=== PATIENT | female | born 1990 | race Caucasian/White ===

== ENCOUNTER 2019-02-02 15:59 | Emergency (ER) | payer MEDICAID, SELFPAY ==
[2019-02-02 16:01] VITALS: BP 127/84; PULSE 104; RESP 17; TEMP 36.8; O2SAT 99; BMI 33.3
--- NOTE | 2019-02-02 16:58 | ED.VISSUMM ---
- ER Visit Summary Date of Service: 02/02/19 Chief Complaint: Left leg pain from DVT History of Present Illness: The patient is a 28 F who is 34 weeks who presents for severe uncontrolled leg pain from unknown DVT. Patient states she began having left leg pain 2 weeks ago and was diagnosed with DVT in the left lower extremity up to the groin. She was started on Lovenox subcu 100 mg twice daily. Patient continued to have significant pain worsened. She was seen at [facility] emergency department and given morphine for pain. She was discharged on Percocet every 4 hours, which made the pain more tolerable. She took her last dose during the night. Patient is having so much pain that she is unable to ambulate without a cane. She is also urinating in a bucket next to her bed because she is unable to ambulate any distance. She denies any shortness of breath, chest pain, fever, dizziness, lightheadedness or any other complaints other than the severe worsening left leg pain. Patient has appointment with Dr. Mendenhall on Tuesday. Patient denies any other medical history. Physical Examination: Vital signs: afebrile, hemodynamically stable, no hypoxia on room air General: well nourished, well developed, in bed crying Skin: warm, dry, no rash, no pallor HEENT: normocephalic and atraumatic; PERRL, EOMI, moist mucous membranes Cardiovascular: Mildly tachycardic rate crying and regular rhythm without murmurs,2+ pulses all distal extremities, left lower extremity is edematous up to the knee, tender to light palpation in the entire foot, lower leg, and medial thigh. No palpable cords. Legs are symmetric in temperature. No tenderness, swelling or palpable cords to the right lower extremity. Respiratory: No increased work of breathing, lungs are clear to auscultation bilaterally, no rales, rhonchi or wheezing, no tachypnea Abdominal: Abdomen is gravid, nontender with normoactive bowel sounds, no guarding or rebound, no masses MSK: Moves all extremities, no deformities, normal strength Neuro: Awake and alert, oriented ?4. No facial droop, sensation and motor function intact and symmetric Test Results: Abnormal Lab Results 02/02/19 02/02/19 02/02/19 17:20 17:20 17:20 WBC 11.8 H RBC 3.94 L Hgb 11.2 L Hct 32.6 L MCV 82.7 MCH 28.4 MCHC 34.4 RDW 12.5 RDW Differential 37.2 Plt Count 453 H MPV 9.1 PT 13.4 INR 1.0 APTT 36.5 H Sodium 136 Potassium 3.6 Chloride 106 Carbon Dioxide 23.0 Anion Gap 7 BUN 9 Creatinine 0.37 L Estim Creat Clear Calc 191.98 Est GFR (MDRD) Af Amer 266 Est GFR (MDRD) Non-Af 220 BUN/Creatinine Ratio 24.5 H Glucose 75 Calcium 8.7 Clinical Impression(s) from Imaging Studies Venous Duplex 02/02/19 17:09 IMPRESSION: Right lower extremity venous Doppler exam negative for DVT. Left lower extremity venous Doppler exam negative for acute occlusive thrombus of the common femoral and femoral vein. Electronically Signed: Mita Abdul MD at 20:53 EDT , Service support , Emergency Department Course and Treatment: Patient has no complaints that would be concerning for a pulmonary embolism. Patient was given IV fluids, morphine and Phenergan for symptomatic control. Patient had some improvement in her pain with this treatment. Ultrasound was repeated since we do not have access to patient's prior ultrasounds, and it showed extensive left lower extremity complete occlusive thrombus from the common femoral down to the knee. Patient was given additional pain medication as needed. Patient was discussed with Dr. Mendenhall, with whom she has an outpatient appointment coming up in a few days for this complaint, and he recommended that because patient is on the appropriate therapy already but is having such severe pain, she would benefit from a vascular surgeon consult and also from high risk maternal management. This is not available at [facility]. Patient requested [facility], and was accepted at [facility] by Dr. Zayas. Treatment Plan: [] Disposition: Transfer to [facility], OB, Dr. Zayas Impression: Extensive left lower extremity DVT, intractable pain, 34 weeks This note was generated with PlayCanvasation software. It may contain incorrect words, spelling, and punctuation that were not noted in review of the chart prior to signing ED Disposition - Plan for ED Patient: Referrals: Care Physician,No Primary [Primary Care Provider] -
--- NOTE | 2019-02-02 17:01 | ED.DCSUM_ITS ---
- ER Visit Summary Date of Service: 02/02/19 Chief Complaint: Left leg pain from DVT History of Present Illness: The patient is a 28 F who is 34 weeks who presents for severe uncontrolled leg pain from unknown DVT. Patient states she began having left leg pain 2 weeks ago and was diagnosed with DVT in the left lower extremity up to the groin. She was started on Lovenox subcu 100 mg twice daily. Patient continued to have significant pain worsened. She was seen at [facility] emergency department and given morphine for pain. She was discharged on Percocet every 4 hours, which made the pain more tolerable. She took her last dose during the night. Patient is having so much pain that she is unable to ambulate without a cane. She is also urinating in a bucket next to her bed because she is unable to ambulate any distance. She denies any shortness of breath, chest pain, fever, dizziness, lightheadedness or any other complaints other than the severe worsening left leg pain. Patient has appointment with Dr. Mendenhall on Tuesday. Patient denies any other medical history. Physical Examination: Vital signs: afebrile, hemodynamically stable, no hypoxia on room air General: well nourished, well developed, in bed crying Skin: warm, dry, no rash, no pallor HEENT: normocephalic and atraumatic; PERRL, EOMI, moist mucous membranes Cardiovascular: Mildly tachycardic rate crying and regular rhythm without murmurs,2+ pulses all distal extremities, left lower extremity is edematous up to the knee, tender to light palpation in the entire foot, lower leg, and medial thigh. No palpable cords. Legs are symmetric in temperature. No tenderness, swelling or palpable cords to the right lower extremity. Respiratory: No increased work of breathing, lungs are clear to auscultation bilaterally, no rales, rhonchi or wheezing, no tachypnea Abdominal: Abdomen is gravid, nontender with normoactive bowel sounds, no guarding or rebound, no masses MSK: Moves all extremities, no deformities, normal strength Neuro: Awake and alert, oriented ?4. No facial droop, sensation and motor function intact and symmetric Test Results: Abnormal Lab Results 02/02/19 02/02/19 02/02/19 17:20 17:20 17:20 WBC 11.8 H RBC 3.94 L Hgb 11.2 L Hct 32.6 L MCV 82.7 MCH 28.4 MCHC 34.4 RDW 12.5 RDW Differential 37.2 Plt Count 453 H MPV 9.1 PT 13.4 INR 1.0 APTT 36.5 H Sodium 136 Potassium 3.6 Chloride 106 Carbon Dioxide 23.0 Anion Gap 7 BUN 9 Creatinine 0.37 L Estim Creat Clear Calc 191.98 Est GFR (MDRD) Af Amer 266 Est GFR (MDRD) Non-Af 220 BUN/Creatinine Ratio 24.5 H Glucose 75 Calcium 8.7 Clinical Impression(s) from Imaging Studies Venous Duplex 02/02/19 17:09 IMPRESSION: Right lower extremity venous Doppler exam negative for DVT. Left lower extremity venous Doppler exam negative for acute occlusive thrombus of the common femoral and femoral vein. Electronically Signed: Mita Abdul MD at 20:53 EDT , Service support , Emergency Department Course and Treatment: Patient has no complaints that would be concerning for a pulmonary embolism. Patient was given IV fluids, morphine and Phenergan for symptomatic control. Patient had some improvement in her pain with this treatment. Ultrasound was repeated since we do not have access to patient's prior ultrasounds, and it showed extensive left lower extremity complete occlusive thrombus from the common femoral down to the knee. Patient was given additional pain medication as needed. Patient was discussed with Dr. Mendenhall, with whom she has an outpatient appointment coming up in a few days for this complaint, and he recommended that because patient is on the appropriate therapy already but is having such severe pain, she would benefit from a vascular surgeon consult and also from high risk maternal management. This is not available at [facility]. Patient requested [facility], and was accepted at [facility] by Dr. Zayas. Treatment Plan: [] Disposition: Transfer to [facility], OB, Dr. Zayas Impression: Extensive left lower extremity DVT, intractable pain, 34 weeks This note was generated with CrossMedia dictation software. It may contain incorrect words, spelling, and punctuation that were not noted in review of the chart p rior to signing ED Disposition - Plan for ED Patient: Referrals: Care Physician,No Primary [Primary Care Provider] -
--- NOTE | 2019-02-02 17:09 | US_ITS ---
We are attempting to reach Renetta Mccormick to discuss findings. An addendum with communication details will be sent when the communication is complete. STUDY: VENOUS DOPPLER ULTRASOUND - BILATERAL LOWER EXTREMITIES REASON FOR EXAM: Female, 28 years old. Pain and swelling of the left leg. TECHNIQUE: Ultrasound evaluation of the deep vein system to include nelson-scale imaging and compression was performed. Nelson-scale imaging and Doppler sonographic evaluation, including duplex spectral analysis and qualitative color flow sonography, was performed. COMPARISON: None. FINDINGS: RIGHT LEG Common Femoral Vein: Normal compression, spontaneity and augmentation. Normal color Doppler. Common Femoral Vein/Greater Saphenous Junction: Normal compression. Femoral Proximal: Normal compression. Femoral Middle: Normal compression, spontaneity and augmentation. Normal color Doppler. Femoral Distal: Normal compression. Popliteal Vein: Normal compression, spontaneity and augmentation. Normal color Doppler. Posterior Tibial Vein: Normal compression. Peroneal Vein: Normal compression. LEFT LEG Common Femoral Vein: Noncompressible with no color flow. Common Femoral Vein/Greater Saphenous Junction: Noncompressible with no color flow. Femoral Proximal: Noncompressible with no color flow. Femoral Middle: Noncompressible with no color-flow. Femoral Distal: Noncompressible with no color flow. Popliteal Vein: Compressible with color flow. Posterior Tibial Vein: Normal compression. Peroneal Vein: Normal compression. US/Venous Duplex Imag/[place] Extrem IMPRESSION: Right lower extremity venous Doppler exam negative for DVT. Left lower extremity venous Doppler exam negative for acute occlusive thrombus of the common femoral and femoral vein. Electronically Signed: Mita Abdul MD at 20:53 EDT , Service support ,
[2019-02-02] MEDS: 0.9% Normal Saline 1,000 ML 999 ML IV (17:20)
[2019-02-02] MEDS: Morphine 4 MG/ML Syringe IV (17:20)
[2019-02-02] MEDS: proMETHazine 25 MG/ML Syringe 6.25 MG IV (17:21)
[2019-02-02] MEDS: Enoxaparin 100 MG/ML Syringe SC (17:21)
[2019-02-02 17:39] LABS: Hematocrit 32.6 % (37-47); Hemoglobin 11.2 g/dl (12.0-15.0); Mean Corp Hgb Conc 34.4 g/gl (32-36); Mean Corpuscular Hgb 28.4 pg (27.0-32.0); Mean Corpuscular Volume 82.7 fL (81-99); Mean Platelet Vol. 9.1 fl (6.2-12.0); Platelet Count 453 K/mm3 (150-450); RBC Distribution Width CV 12.5 % (11.6-14.6); RBC Distribution Width SD 37.2 fl (35.1-43.9); Red Blood Count 3.94 M/mm3 (4.2-5.4); White Blood Count 11.8 K/mm3 (4.4-11.0)
[2019-02-02 17:40] LABS: Scan Indicated on CBC? Y/N NO
[2019-02-02 17:47] LABS: Anion Gap 7 (5-15); BUN 9 mg/dL (7-18); BUN/Creat Ratio 24.5 RATIO (10-20); Calcium,Total 8.7 mg/dL (8.5-10.1); Chloride 106 mmol/L (98-107); Creatinine, Serum 0.37 mg/dL (0.55-1.02); EST Glomerular Filtration Rate 220 mL/min (>60); Est Glom Filt Rate - Afr Amer 266 mL/min (>60); Estimated Creatinine Clearance 191.98 ml/min; Glucose 75 mg/dL (74-106); Potassium 3.6 mmol/L (3.5-5.1); Sodium Level 136 mmol/L (136-145)
[2019-02-02 18:25] LABS: Prothrombin Time (Protime)PT. 13.4 SECONDS (11.7-14.9)
[2019-02-02 18:26] LABS: Partial Thromboplast Time 36.5 Seconds (24.1-36.2)
[2019-02-02 18:38] VITALS: BP 115/64; PULSE 66; RESP 15; O2SAT 99
[2019-02-02] MEDS: HYDROcodone Bitartrate/Apap 5/325 Tablet PO (21:13)
[2019-02-02 21:14] VITALS: BP 125/60; PULSE 73; PULSE 76; RESP 15; O2SAT 98
--- NOTE | 2019-02-02 21:42 | NURSING ---
ACCEPTED TO [place] [id number] REPORT
== END 2019-02-02 22:51 | disposition short-term general hospital (02) ==
LOC: ED 17:40
PROVIDERS: Emergency Provider Emergency Medicine
DX: O22.33 Deep phlebothrombosis in pregnancy, third trimester (principal); I82.412 Acute embolism and thrombosis of left femoral vein; Z79.01 Long term (current) use of anticoagulants; Z3A.34 34 weeks gestation of pregnancy
CPT/HCPCS: 80048; 85027; 85610; 85730; 93970; 96361; 96372; 96374; 96375; 99284; J7030

== ENCOUNTER 2019-02-18 23:15 | Outpatient (CLI) | payer MEDICAID, SELFPAY ==
[2019-02-18 23:28] VITALS: BMI 34.8
[2019-02-18] MEDS: Enoxaparin 100 MG/ML Syringe 90 MG SC (23:42)
--- NOTE | 2019-02-20 08:00 | OB.TRI.NOTE ---
History of Present Illness Date of Service: 02/18/19 Was patient seen by the physician?: No Reason For Visit: INJECTION LOvenox Date of Service: 02/18/19 Allergies No Known Allergies Allergy (Verified 02/18/19 23:29) Impression/Plan 28yo here for LOVENOX INJECTION - has DVT in - problem with insurance until tuesday morning 1) Lovenox 90mg SQ x 1 2) dc home
== END 2019-02-18 23:50 | disposition home or self-care (01) ==
LOC: WPOUT 23:20 → WP 23:22
PROVIDERS: Referring Provider Obstetrics & Gynecology; Visit Provider Obstetrics & Gynecology
DX: O22.30 Deep phlebothrombosis in pregnancy, unspecified trimester (principal); I82.409 Acute embolism and thrombosis of unspecified deep veins of unspecified lower extremity; Z3A.00 Weeks of gestation of pregnancy not specified
CPT/HCPCS: 96372; 99218; G0378

== ENCOUNTER 2019-03-04 19:15 | Inpatient (IN) | payer MEDICAID, SELFPAY ==
[2019-03-04 19:55] VITALS: BMI 34.0
[2019-03-04] MEDS: Lactated Ringers 1,000 ML 50 ML IV ×2 (19:59→23:55)
[2019-03-04 20:18] LABS: Absolute Lymphocyte Count 2.64 X10^3/ul (0.83-4.51); Absolute Neutrophil Count 7.2 X10^3/uL (2.0-7.7); Basophil# 0.01 X10^3/uL; Basophil% 0.1 % (0-1); Eosinophil# 0.07 X10^3/uL; Eosinophils% 0.7 % (0-5); Hematocrit 34.5 % (37-47); Hemoglobin 11.8 g/dl (12.0-15.0); Lymphocyte # 2.64 X10^3/ul (4.0); Lymphocyte % 25.2 % (19-41); Mean Corp Hgb Conc 34.2 g/gl (32-36); Mean Corpuscular Hgb 28.5 pg (27.0-32.0); Mean Corpuscular Volume 83.3 fL (81-99); Mean Platelet Vol. 10.1 fl (6.2-12.0); Monocyte# 0.54 X10^3/uL; Monocyte% 5.2 % (0-10); Neutrophil # 7.19 X10^3/uL (2.7-7.7); Neutrophil % 68.6 % (47-70); Platelet Count 302 K/mm3 (150-450); RBC Distribution Width CV 13.2 % (11.6-14.6); RBC Distribution Width SD 40.2 fl (35.1-43.9); Red Blood Count 4.14 M/mm3 (4.2-5.4); White Blood Count 10.5 K/mm3 (4.4-11.0)
[2019-03-04 20:23] LABS: POSITIVE COUNT NO; POSITIVE DIFFERENTIAL NO; POSITIVE MORPHOLOGY NO
[2019-03-04] MEDS: 0.9% Normal Saline 100 ML IV.SOLN. INTRA-UTER (20:30)
[2019-03-04] MEDS: Oxytocin 30 units/NS 500 ml 30 UNITS/500 ML IV.SOLN IV (20:36)
--- NOTE | 2019-03-04 20:42 | PCM.HP.OB ---
- Problem List (1) Opiate use Status: Acute (2) DVT complicating Status: Acute (3) Tobacco use Status: Acute (4) History of bipolar disorder Status: Acute (5) ADHD Status: Acute (6) Polyhydramnios affecting Status: Acute History Date of Admission: 03/04/19 Final SHA: 03/11/19 Final SHA Source: US <20 weeks Gestational age: 39 Weeks and 0 Days History of this : This is a 28 year-old, G [], P [], at 39 weeks gestational age. Allergies No Known Allergies Allergy (Verified 02/18/19 23:29) Home Medications: Home Medications Enoxaparin Sodium 100 mg SQ BID 02/02/19 Ondansetron [Ondansetron Odt] 4 mg PO Q8H PRN PRN 02/02/19 Pnv No.103/Folic/Om3s/Fish Oil [ Gummies] 2 each PO DAILY 02/02/19 Smoking Status: Current every day smoker Alcohol: None Substance Use Type: Heroin, Opiates Number of Fetus(es): 1 Heart Tracin, moderate variability, accels, no decels, Category 1 None History Past Pregnancies: Past Pregnancies Delivery Date Name GA/Weeks Outcome Route Weight Infant Gender Labor Length Anesthesia Delivery Location Provider FOB Labs: A positive Rubella Immune RPR negative HBsAG negative HIV negative Hep C negative GC/CT negative Expected Infant Delivery Method: Spontaneous Vaginal Review of Systems Constitutional: Reports: Anorexia HEENT: Denies: Head Aches, Sinus Congestion, Sinus Drainage Cardiovascular: Denies: Chest Pain, Palpitations Respiratory: Denies: Cough, Shortness of breath at rest, Sputum production Gastrointestinal: Denies: Abdominal Pain, Nausea, Vomiting Genitourinary: Denies: Dysuria Neurological: Denies: Numbness, Tingling, Focal weakness Psychiatric: Denies: Anxiety, Depression, Homicidal Ideations, Suicidal Ideations Physical Exam General: Alert, Oriented x3, No apparent distress HEENT: Atraumatic, Normocephalic Cardiovascular: Regular rate, Regular Rhythm, No murmurs Lungs: Clear to auscultation, Normal air movement, No wheeze Abdomen: Bowel Sounds Present, Gravid Extremities:: No edema Neurological: Deep Tendon Reflexes 2+/4 and Symmetrical Estimated gestational size: Appropriate for gestational size Presentation: Cephalic Cervix Dilation (cm): 2 - garg catheter inserted without difficulty Station: -1 Effacement (%): 80 Assessment/Plan All Active Problems Opiate use (Acute) DVT complicating (Acute) Tobacco use (Acute) History of bipolar disorder (Acute) ADHD (Acute) Polyhydramnios affecting (Acute) Positive GBS test (Acute) Heroin abuse (Acute) This is a 28 year-old, G [1], P [0], at 39 weeks gestational age. A:Induction of labor for Polyhydramnios Category 1 FHT P: 1) Admit to L&D. Routine labs. Urine tox screen. 2) Patient will bring Subutex prescription to take during stay. 3) Last dose of Lovenox 03/03/19 in the am. 4) Garg bulb for cervical ripening 5) Pitocin for induction of labor. 6) notified of admission.
[2019-03-04 22:05] LABS: Amphetamine Urine VISTA NEGATIVE (<1000 ng/mL); Barbiturate Urine VISTA NEGATIVE (< 200 ng/mL); Benzodiazepine Urine VISTA NEGATIVE (< 200 ng/mL); Cocaine Urine VISTA NEGATIVE (< 300 ng/mL); Ecstacy Urine VISTA NEGATIVE (< 500 ng/mL); Methadone Urine VISTA NEGATIVE (< 300 ng/mL); PCP Urine VISTA NEGATIVE (< 25 ng/mL); THC Urine VISTA NEGATIVE (< 50 ng/mL); Vista UDS pH Range 6
[2019-03-04 22:56] LABS: BUP Internal Control LINE = VALID (VALID); Buprenorphine Drug Screen Positive (<10 ng/mL)
[2019-03-05] MEDS: fentaNYL-bupivacaine (epidural) 100 ML BAG EPIDURAL (02:23)
[2019-03-05] MEDS: Lactated Ringers 1,000 ML 50 ML IV (03:19)
[2019-03-05] MEDS: Ondansetron 4 MG/2 ML Vial IV (04:36)
--- NOTE | 2019-03-05 05:19 | PN.OBGYN_ITS ---
Patient Problems: Active and Suspected Problems Opiate use (Acute) DVT complicating (Acute) Tobacco use (Acute) History of bipolar disorder (Acute) ADHD (Acute) Polyhydramnios affecting (Acute) Positive GBS test (Acute) Heroin abuse (Acute) Subjective: Resting in bed, captain's position. Comfortable, feeling increased pressure. Objective: FHT 140, moderate variability, accels, no decels. Category 1 TOCO: every 2-4 minutes, strong. Pitocin at 2 mu's Cervix: c/c/+2 - Physical Exam Weight: 198 lb 6.656 oz Body Mass Index (BMI) 34.0 Intake and Output for Last 24 Hours 03/03/19 03/04/19 03/05/19 23:59 23:59 23:59 Intake Total 1154 / 1154 Output Total 200 / 200 Balance 954 / 954 Laboratory Tests Past 24 Hrs 03/04/19 03/04/19 03/04/19 20:05 20:05 21:15 WBC 10.5 RBC 4.14 L Hgb 11.8 L Hct 34.5 L MCV 83.3 MCH 28.5 MCHC 34.2 RDW 13.2 RDW Differential 40.2 Plt Count 302 MPV 10.1 Immature Gran % (Auto) 0.200 Neut % (Auto) 68.6 Lymph % (Auto) 25.2 Candler % (Auto) 5.2 Eos % (Auto) 0.7 Baso % (Auto) 0.1 Absolute Neuts (auto) 7.2 Absolute Lymphs (auto) 2.64 Total Counted Not Reportable Urine Opiates Screen NEGATIVE Ur Buprenorphine Scrn Urine Methadone Screen NEGATIVE Ur Barbiturates Screen NEGATIVE Ur Phencyclidine Scrn NEGATIVE Ur Amphetamines Screen NEGATIVE U Methamphetamin-MDMA NEGATIVE U Benzodiazepines Scrn NEGATIVE Urine Cocaine Screen NEGATIVE U Cannabinoids Screen NEGATIVE Ur Drug Screen Comment Blood Type A POSITIVE Antibody Screen NEGATIVE 03/04/19 21:15 WBC RBC Hgb Hct MCV MCH MCHC RDW RDW Differential Plt Count MPV Immature Gran % (Auto) Neut % (Auto) Lymph % (Auto) Candler % (Auto) Eos % (Auto) Baso % (Auto) Absolute Neuts (auto) Absolute Lymphs (auto) Total Counted Urine Opiates Screen Ur Buprenorphine Scrn Positive H Urine Methadone Screen Ur Barbiturates Screen Ur Phencyclidine Scrn Ur Amphetamines Screen U Methamphetamin-MDMA U Benzodiazepines Scrn Urine Cocaine Screen U Cannabinoids Screen Ur Drug Screen Comment Blood Type Antibody Screen Medical Necessity - Tobacco Use Smoking Status: Current every day smoker Assessment/Plan All Active Problems Opiate use (Acute) DVT complicating (Acute) Tobacco use (Acute) History of bipolar disorder (Acute) ADHD (Acute) Polyhydramnios affecting (Acute) Positive GBS test (Acute) Heroin abuse (Acute) A:Active labor, progressing Category 1 FHT P: 1) Continue with active management. 2) Anticipate vaginal delivery soon.
[2019-03-05] MEDS: Oxytocin 30 units/NS 500 ml 30 UNITS/500 ML IV.SOLN 334 UNITS IV (06:19)
--- NOTE | 2019-03-05 06:48 | PCM.OPRPT ---
Problem List (1) Opiate use Status: Acute (2) DVT complicating Status: Acute (3) Tobacco use Status: Acute (4) History of bipolar disorder Status: Acute (5) ADHD Status: Acute (6) Polyhydramnios affecting Status: Acute (7) Vaginal delivery Status: Acute (8) First degree perineal laceration Status: Acute (9) Periurethral abrasion, delivered, current hospitalization Status: Acute Vaginal Delivery Maternal Presentation: Medically Indicated Induction Amniotic Membrane Rupture Type: Artificial Amniotic Fluid Description: Clear Final SHA: 03/11/19 Final SHA Source: US <20 weeks Gestational age: 39 Weeks and 1 Days Date of Procedure: 03/05/19 Pre-Operative Diagnosis: Polyhyramnios Post-Operative Diagnosis: Surgery/ Procedure Performed: Spontaneous Vaginal Delivery Type of Anesthesia: Epidural Description of Procedure: Progressed to complete with urge to push. of viable male infant over 1st degree perineal laceration. Infant head delivered and body forthcoming. Infant placed on maternal abdomen, spontaneous cry. Mouth and nares suctioned for secretions. APGARS 9,9. Cord clamped and cut after pulsations ceased. Pitocin started for active 3rd stage management. Placenta delivered via kaykay, 3 vessel cord, intact. Perineum inspected and revealed 1st degree perineal laceration, repaired with 3.0 vicryl and periurethral repaired with 3.0 vicryl. Fundus firm, hemostasis achieved, EBL 200ml. Planning to breastfeed. Family bonding well. Mom and baby stable. notified of delivery. Presentation: Vertex Placental Delivery Description: Spontaneous Placenta Disposition: [facility] Cord Vessel Description: 3 Vessels Drain: Munoz to straight drain Estimated Blood Loss: 200ml Infant A gender: Male (1 minute): 9 (5 minute): 9 Episiotomy Description: Periurethral Extnsion/lac, Perineal Extension/lac, 1st degree Medications given after delivery: IV Pitocin
[2019-03-05] MEDS: Oxytocin 30 units/NS 500 ml 30 UNITS/500 ML IV.SOLN 167 UNITS IV (06:49)
--- NOTE | 2019-03-05 07:41 | NURSING ---
Addendum entered by Bruna Vasquez 03/05/19 07:51: Rupal MARROQUIN states will talk to to discuss what time lovenox should be resumed today Original Note: Rupal MARROQUIN called by this RN. updated that pharmacy will dispense pts morning dose of subutex 8mg, then pts mother to bring her medications in to hospital to be used during stay. Rupal MARROQUIN states she will call to order subutex. Rupal MARROQUIN requested RN to call anesthesia and inform them pt will be restarted on lovenox today for DVT [id number] Tad LEROY on unit, informed pt has epidural cath in at this time, pt has a DVT in left leg and will be started on lovenox today. Tad LEROY states will discuss with anesthesiologist to see when epidural cath should be discontinued
--- NOTE | 2019-03-05 07:55 | NURSING ---
Tad FOUNDRY SUPERVISOR states he discussed epidural d/c with . states he will come to unit to d/c epidural
[2019-03-05] MEDS: BUPRENORPHINE HCL 8 MG TAB.SUBL SL (09:08)
[2019-03-05] MEDS: Enoxaparin 100 MG/ML Syringe 90 MG SC ×2 (11:08→22:32)
[2019-03-05] MEDS: Ibuprofen 600 MG Tablet PO ×2 (11:09→20:58)
[2019-03-05 12:04] VITALS: BP 133/62; PULSE 71; RESP 14; TEMP 36.6
[2019-03-05 16:00] VITALS: BP 113/71; PULSE 82; RESP 14; TEMP 37.1
[2019-03-05 20:50] VITALS: BP 113/57; PULSE 71; RESP 18; TEMP 36.5
[2019-03-05] MEDS: BUPRENORPHINE HCL 8 MG TAB.SUBL 4 MG SL (22:34)
[2019-03-06 00:05] VITALS: BP 117/58; PULSE 68; RESP 18; TEMP 37.2
[2019-03-06 04:50] VITALS: BP 115/67; PULSE 68; RESP 18; TEMP 37
[2019-03-06 05:44] LABS: Hematocrit 30.2 % (37-47); Hemoglobin 9.9 g/dl (12.0-15.0); Mean Corp Hgb Conc 32.8 g/gl (32-36); Mean Corpuscular Hgb 27.8 pg (27.0-32.0); Mean Corpuscular Volume 84.8 fL (81-99); Mean Platelet Vol. 9.7 fl (6.2-12.0); Platelet Count 249 K/mm3 (150-450); RBC Distribution Width CV 13.2 % (11.6-14.6); RBC Distribution Width SD 39.4 fl (35.1-43.9); Red Blood Count 3.56 M/mm3 (4.2-5.4); Scan Indicated on CBC? Y/N NO; White Blood Count 11.5 K/mm3 (4.4-11.0)
--- NOTE | 2019-03-06 08:12 | PCM.PN.OB ---
Patient Problems: Active and Suspected Problems Opiate use (Acute) DVT complicating (Acute) Tobacco use (Acute) History of bipolar disorder (Acute) ADHD (Acute) Polyhydramnios affecting (Acute) Positive GBS test (Acute) Heroin abuse (Acute) Vaginal delivery (Acute) First degree perineal laceration (Acute) Periurethral abrasion, delivered, current hospitalization (Acute) Subjective: pt seen at bedside, doing well. pt reports overall good pain control. lochia mild, voiding w/o difficulty. breast feeding. - Physical Exam General: Alert, Oriented x3 Abdomen: Soft, Non Tender, - - fundus firm Vital Signs Temp Pulse Resp BP 98.6 F 68 18 115/67 03/06/19 04:50 03/06/19 04:50 03/06/19 04:50 03/06/19 04:50 Oxygen Delivery Method Room Air Weight: 90 kg Body Mass Index (BMI) 34.0 Intake and Output for Last 24 Hours 03/04/19 03/05/19 03/06/19 23:59 23:59 23:59 Intake Total 1154 / 1154 2227 / 2227 Output Total 200 / 200 1500 / 1500 Balance 954 / 954 727 / 727 Laboratory Tests Past 24 Hrs 03/06/19 05:30 WBC 11.5 H RBC 3.56 L Hgb 9.9 L Hct 30.2 L MCV 84.8 MCH 27.8 MCHC 32.8 RDW 13.2 RDW Differential 39.4 Plt Count 249 MPV 9.7 Medical Necessity - Tobacco Use Smoking Status: Current every day smoker Assessment/Plan All Active Problems Opiate use (Acute) DVT complicating (Acute) Tobacco use (Acute) History of bipolar disorder (Acute) ADHD (Acute) Polyhydramnios affecting (Acute) Positive GBS test (Acute) Heroin abuse (Acute) Vaginal delivery (Acute) First degree perineal laceration (Acute) Periurethral abrasion, delivered, current hospitalization (Acute) PPD#1, doing well routine care pain mgmt- NSAIDS continue Buprenorphine 4mg SL continue BUD on
[2019-03-06] MEDS: BUPRENORPHINE HCL 8 MG TAB.SUBL SL (08:20)
[2019-03-06 09:03] VITALS: BP 131/76; PULSE 87; RESP 16; TEMP 36.7; O2SAT 98
[2019-03-06] MEDS: Enoxaparin 100 MG/ML Syringe 90 MG SC ×2 (10:06→21:57)
[2019-03-06] MEDS: Prenatal Vits Tablet 2 TABLET PO (10:07)
[2019-03-06] MEDS: Gabapentin 300 MG Capsule PO (10:09)
[2019-03-06] MEDS: Ibuprofen 600 MG Tablet PO ×2 (11:45→19:50)
[2019-03-06 12:30] VITALS: BP 117/66; PULSE 71; RESP 16; TEMP 36.7; O2SAT 98
[2019-03-06 14:58] VITALS: BP 117/61; PULSE 99; RESP 18; TEMP 36.2; O2SAT 98
[2019-03-06 19:43] VITALS: BP 130/61; PULSE 73; RESP 16; TEMP 36.5; O2SAT 98
[2019-03-06] MEDS: Dibucaine 30 GM Tube 1 APPLIC TOPICAL (19:57)
[2019-03-06] MEDS: BUPRENORPHINE HCL 8 MG TAB.SUBL 4 MG SL (21:56)
[2019-03-07 03:01] VITALS: BP 103/56; PULSE 66; RESP 16; TEMP 36.8; O2SAT 98
[2019-03-07 08:00] VITALS: BP 117/63; PULSE 81; RESP 17; TEMP 36.6; O2SAT 99
[2019-03-07] MEDS: BUPRENORPHINE HCL 8 MG TAB.SUBL SL (08:22)
[2019-03-07] MEDS: Ibuprofen 600 MG Tablet PO ×2 (08:22→15:42)
--- NOTE | 2019-03-07 08:53 | PCM.PN.OB ---
Patient Problems: Active and Suspected Problems Opiate use (Acute) DVT complicating (Acute) Tobacco use (Acute) History of bipolar disorder (Acute) ADHD (Acute) Polyhydramnios affecting (Acute) Positive GBS test (Acute) Heroin abuse (Acute) Vaginal delivery (Acute) First degree perineal laceration (Acute) Periurethral abrasion, delivered, current hospitalization (Acute) Subjective: Doing well per patient and nursing staff. Ambulating and taking PO without difficulty. and assistance from services. Lochia normal, no large clots. Denies any chest pain, SOB, or increased pain. Will D/C to hotel status. - Physical Exam General: Alert, Oriented x3, Cooperative HEENT: Atraumatic, Normocephalic Lungs: Clear to auscultation, Normal air movement, No rhonchi, No wheeze Cardiovascular: Regular rate, Regular Rhythm, No murmurs Abdomen: Bowel Sounds Present, Soft, - - Fundus firm Extremities: No edema Psych/Mental Status: Normal Affect, Appropriate Vital Signs Temp Pulse Resp BP Pulse Ox 98.3 F 66 16 103/56 L 98 03/07/19 03:01 03/07/19 03:01 03/07/19 03:01 03/07/19 03:01 03/07/19 03:01 Oxygen Delivery Method Room Air Weight: 198 lb 6.656 oz Body Mass Index (BMI) 34.0 Intake and Output for Last 24 Hours 03/05/19 03/06/19 03/07/19 23:59 23:59 23:59 Intake Total 2227 / 2227 Output Total 1500 / 1500 Balance 727 / 727 Medical Necessity - Tobacco Use Smoking Status: Current every day smoker Assessment/Plan All Active Problems Opiate use (Acute) DVT complicating (Acute) Tobacco use (Acute) History of bipolar disorder (Acute) ADHD (Acute) Polyhydramnios affecting (Acute) Positive GBS test (Acute) Heroin abuse (Acute) Vaginal delivery (Acute) First degree perineal laceration (Acute) Periurethral abrasion, delivered, current hospitalization (Acute) PPD #2 Breast feeding Blood loss anemia P: 1) Routine and instructions 2) Will continue home dose of Subutex 3) Continue therapeutic Lovenox 4) Will start ferrous sulfate 325mg PO BID, hgb 9.9 5) D/C to hotel status, continue with BUD
--- NOTE | 2019-03-07 09:02 | DCINST_ITS ---
Discharge Diet: No Restrictions Discharge Activity: Return to Normal Activity May resume sexual activity in: 4-6 weeks Additional Activity Instructions:: Nothing in the vagina for 4-6 weeks. You may return to work/school in 6 weeks. Call your doctor if your incision/area has: Continuous Slow Oozing, Sudden Increased Bleeding, Increased Pain/ Swelling, Increased Redness, Foul Smelling Discharge Call your doctor if you observe: Fever of 101 or Higher, Inability to have a bowel movement, Using more than one pad per hour, Shortness of breath, Chest pain, Calf discomfort, Uncontrolled pain Additional Instructions: If you experience any of the following, contact your healthcare provider. * Bleeding that soaks a pad every hour for 2 hours * Fever 100.4 or higher * Unrelieved incision or abdominal pain * Swelling, redness, discharge or bleeding from your incision or episiotomy site * Your incision begins to separate * Problems urinating (including inability to urinate or burning while urinating). * Visual changes * Severe headache * Flu-like symptoms * Pain or redness in one of both of your breasts * Pain, warmth, tenderness or swelling in your legs, especially the calf area * Frequent nausea and vomiting * Symptoms of depression or anxiety If you experience any of the following, call 911 or go to the nearest Emergency Room. * Chest pain * Problems breathing * Seizure activity * Partial or complete paralysis of a body part, slurred speech, weakness or drooping of the face, or a sudden inability to walk or hold your balance Allergies/Adverse Reactions: Allergies No Known Allergies Allergy (Verified 03/04/19 22:31) Medications to take at Discharge Enoxaparin Sodium 90 mg SQ BID 02/02/19 Ondansetron [Ondansetron Odt] 4 mg PO Q8H PRN PRN 02/02/19 Pnv No.103/Folic/Om3s/Fish Oil [ Gummies] 2 each PO DAILY 02/02/19 Buprenorphine HCl 8 mg SL DAILY 03/04/19 Gabapentin [Neurontin] 300 mg PO TIDCM 03/04/19 Omeprazole Magnesium [Prilosec Otc] 20 mg PO PRN PRN 03/04/19 Ferrous Sulfate 325 mg PO BIDCM #60 tablet 03/07/19 The following prescriptions were given: Ferrous Sulfate 325 mg PO BIDCM #60 tablet Please Follow Up With: Jose M Fernandez When: Call to make an appointment with your doctor in 6 weeks. If you had elevated Blood Pressure or 4th degree laceration you will need to be seen in 2 weeks. Primary Care Physician: Care Physician,No Primary [Primary Care Provider] - Test Results: Test results from this visit will be discussed in further detail at your follow- up appointment, if applicable.
[2019-03-07] MEDS: Prenatal Vits Tablet 2 TABLET PO (10:17)
[2019-03-07] MEDS: Gabapentin 300 MG Capsule PO (10:17)
[2019-03-07] MEDS: Enoxaparin 100 MG/ML Syringe 90 MG SC (10:17)
[2019-03-07 14:00] VITALS: BP 109/67; PULSE 79; RESP 16; TEMP 36.9; O2SAT 99
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
--- NOTE | 2019-03-08 15:00 | CASEMGMT ---
Social Work Labor and Delivery Unit Patient/mother of baby was discharged home 03.07.2019. Baby remains in hospital so this creative services writer was able to meet with MOB for follow up to initial assessment that occurred on 03.07.2019. This creative services writer called [facility] ([facility] today, made referral to Kaylee at [phone]. Received call from putty and patch worker Aydee Garcia who is the assigned putty and patch worker to new case for this family. Aydee's number is [phone]. Met with MOB to update. Provided MOB with information on Depression and a [facility] resrouces packet. No further needs requested or indicted for MOB. MOB is linked with JFS, WIC, AA/NA, and Medication Assisted treatment and IOP through [facility]. [facility] is now involved as an additional support to this family. Social work continues to follow family while baby is in the hospital. -CHELSIE Philip, HARNESS BRUSHER
== END 2019-03-07 17:30 | disposition home or self-care (01) | DRG 560 ==
PROVIDERS: Advanced Practice Midwife; Admitting Provider Obstetrics & Gynecology; Referring Provider Obstetrics & Gynecology; Visit Provider Obstetrics & Gynecology
DX: O40.3XX0 Polyhydramnios, third trimester, not applicable or unspecified (principal); O71.82 Other specified trauma to perineum and vulva; O70.0 First degree perineal laceration during delivery; O99.824 Streptococcus B carrier state complicating childbirth; O87.1 Deep phlebothrombosis in the puerperium; O99.324 Drug use complicating childbirth; F11.10 Opioid abuse, uncomplicated; O99.334 Smoking (tobacco) complicating childbirth; Z79.01 Long term (current) use of anticoagulants; Z79.899 Other long term (current) drug therapy; Z3A.39 39 weeks gestation of pregnancy; Z37.0 Single live birth
CPT/HCPCS: 59025; 59050; 80307; 85025; 85027; 86850; 86900; 99218; J7120; G0378; J2405

== ENCOUNTER 2021-06-05 00:05 | Outpatient (CLI) | payer OTHER, MEDICAID, SELFPAY ==
[2021-06-05 00:27] VITALS: BP 139/87; PULSE 103
[2021-06-05 00:30] VITALS: PULSE 76; O2SAT 98
[2021-06-05 00:53] VITALS: BMI 34.9
[2021-06-05] MEDS: Acetaminophen 500 MG Tablet 1000 MG PO (01:42)
[2021-06-05 03:15] VITALS: PULSE 64; O2SAT 99
[2021-06-05 03:54] VITALS: BP 117/67; PULSE 57; TEMP 36.7; O2SAT 100
--- NOTE | 2021-06-08 12:15 | OB.TRI.NOTE ---
HPI - General HPI Narrative XIOMY CHAN, 89 at 35 weeks gestation presents after a fall. She states she tripped over something when she was walking around in the dark outside. She denies being hit. She denies any abdominal trauma directly but she did fall and hit her side. She denies any vaginal bleeding or leaking of fluid. She has had some irregular contractions. Maternal Data Information Final SHA: 07/10/21 Gestational age: 35 weeks PFSH PFSH Home Medications PNV 992-mvyyo-bjjws-3-fish oil [ Gummies] 2 ea PO DAILY 02/02/19 [History Last Taken 06/04/21 09:00] enoxaparin 90 mg SQ BID 02/02/19 [History Last Taken 06/04/21 18:00] buprenorphine HCl 8 mg SUBLINGUAL DAILY 03/04/19 [History Last Taken 03/04/19 08:00] gabapentin 300 mg PO TIDCM 03/04/19 [History Last Taken 06/04/21 20:00] aspirin 81 mg PO DAILY 06/05/21 [History Last Taken 06/04/21 09:00] buprenorphine HCl 4 mg SUBLINGUAL 06/05/21 [History Last Taken 06/04/21 20:00] Allergy/AdvReac Type Severity Reaction Status Date / Time No Known Allergies Allergy Verified 06/05/21 00:49 Social History Smoking Status: Current every day smoker History Elective abortions Hx Para 0 Spontaneous abortions Hx # Term Pregnancies Ectopic pregnancies Hx # Pregnancies Multiple births # of living children NST FHR Rate Baby A Baseline: 115 Variability:: Moderate Accelerations:: 15 x 15 Decelerations:: None NST Reactive:: Yes FHR Category:: Category I Uterine Activity:: irreg ctxs Assessment & Plan (1) 35 weeks gestation of : (2) High risk multigravida in third trimester: PLAN: RH +, NST reactive no evidence of PTL. Kick counts f/u as scheduled or prn (3) Fall (on)(from) incline, initial encounter:
== END 2021-06-05 04:45 | disposition home or self-care (01) ==
LOC: WPOUT 00:14 → WP 00:15
PROVIDERS: Visit Provider Obstetrics & Gynecology
DX: Z04.3 Encounter for examination and observation following other accident (principal); O09.623 Supervision of young multigravida, third trimester; O99.333 Smoking (tobacco) complicating pregnancy, third trimester; F17.200 Nicotine dependence, unspecified, uncomplicated; Z3A.35 35 weeks gestation of pregnancy; Z79.82 Long term (current) use of aspirin
CPT/HCPCS: 59025; 59050; 99218; G0378

== ENCOUNTER 2021-06-13 02:25 | Outpatient (CLI) | payer OTHER, MEDICAID, SELFPAY ==
[2021-06-13] VITALS (12 sets, daily range): BP systolic 120–138; BP diastolic 75–86; PULSE 67–109; TEMP 36.8–37.1; O2SAT 98–100; BMI 35.9
[2021-06-13 03:26] LABS: Mucous, Urine 0 SEEN /hpf (<or=2+); Red Blood Cells-Urine 0 SEEN /hpf (0-5)
[2021-06-13 03:28] LABS: Color, Urine Yellow (Yellow); Glucose, Dipstick 50 mg/dl (Normal); Ketone-Dipstick 15 mg/dl (Negative); Leukocyte Esterase-Dipstick 100 /ul (Negative); Nitrite-Dipstick Negative (Negative); Occult Blood-Urine Negative /ul (Negative); Protein-Dipstick 30 mg/dl (Negative); Specific Gravity, Urine 1.025 (1.002-1.030); Urine Clarity Clear (Clear); Urine Urobilinogen 4 mg/dl (Normal)
[2021-06-13 03:36] LABS: Urine Bilirubin Dipstick 1 mg/dL (Negative)
[2021-06-13 03:38] LABS: Bacteria 2+ /hpf (None Seen); Squamous Epithelial Cells - UA 10-25 SEEN /hpf (5-10)
[2021-06-13 03:39] LABS: White Blood Cells 10-25 SEEN /hpf (0-5)
[2021-06-13 03:40] LABS: Calcium Oxalate Crystals Ur 1+ /hpf (<or=2+)
[2021-06-13 03:48] LABS: ROM Internal Control Test YES-OK TO RESULT pt. (Internal QC); ROM Patient Test Negative (Negative)
[2021-06-13] MEDS: Lactated Ringers 1,000 ML 999 ML IV ×2 (04:10→08:37)
[2021-06-13 04:30] LABS: Absolute Lymphocyte Count 2.86 X10^3/uL (0.83-4.51); Absolute Neutrophil Count 8.5 X10^3/uL (2.0-7.7); Basophil# 0.06 X10^3/uL; Basophil% 0.5 % (0-1); Eosinophil# 0.13 X10^3/uL; Eosinophils% 1.1 % (0-5); Hematocrit 32.9 % (37-47); Hemoglobin 11.1 g/dL (12.0-15.0); Lymphocyte # 2.86 X10^3/ul (0.83-4.51); Lymphocyte % 23.2 % (19-41); Mean Corp Hgb Conc 33.7 g/dL (32-36); Mean Corpuscular Hgb 29.2 pg (27.0-32.0); Mean Corpuscular Volume 86.6 fL (81-99); Mean Platelet Vol. 10.9 fl (6.2-12.0); Monocyte# 0.65 X10^3/uL; Monocyte% 5.3 % (0-10); NRBC Flagged by Analyzer 0 % (0-5); Neutrophil # 8.53 X10^3/uL (2.7-7.7); Neutrophil % 69.2 % (47-70); Platelet Count 260 K/mm3 (150-450); RBC Distribution Width SD 41.1 fl (35.1-43.9); White Blood Count 12.3 K/mm3 (4.4-11.0)
[2021-06-13 04:54] LABS: ALB/GLOB Ratio 0.6 RATIO (0.9-2.4); AST(SGOT) 19 U/L (15-37); Alanine Aminotransfer ALT/SGPT 14 U/L (13-56); Albumin, Serum 2.5 g/dL (3.2-5.0); Alkaline Phosphatase 127 U/L (45-117); Anion Gap 8 (5-15); BUN 11 mg/dL (7-18); BUN/Creat Ratio 19.2 RATIO (10-20); Calcium,Total 8.5 mg/dL (8.5-10.1); Chloride 102 mmol/L (98-107); Creatinine, Serum 0.57 mg/dL (0.55-1.02); EST Glomerular Filtration Rate 129 mL/min (>60); Est Glom Filt Rate - Afr Amer 157 mL/min (>60); Estimated Creatinine Clearance 122.36 ml/min; Glucose 92 mg/dL (74-106); Potassium 3.4 mmol/L (3.5-5.1); Protein, Total 6.5 g/dL (6.4-8.2); Sodium Level 134 mmol/L (136-145)
[2021-06-13] MEDS: Betamethasone/Betamethasone 30 MG/5 ML Vial 12 MG IM (06:40)
[2021-06-13] MEDS: 0.9% Saline Lock 10 ML Syringe IV (08:37)
--- NOTE | 2021-06-13 12:00 | CM.ED ---
Addendum entered by Aydee Rogers 06/13/21 19:55: ALFONZO called patient at 2:06pm, 2:08pm and there was no answer and no voice mail. ALFONZO used listed phone number of [phone] , ALFONZO called patient's phone number at 8:00pm. ALFONZO spoke to patient. She said that she is doing ok and indicated that going to the hospital gave her a peace of mind about the . Patient said that the staff was so helpful last night and she appreciated it. Patient said that she has to be at the hospital at 7am for the steroid shot but she knows she is at least this far along in the which she feels good about. Patient said that she had her other child, Shrestha at [facility], and last night her MD, Aleah, stopped in to see her so patient felt good about that. Patient very appreciative of support from [facility] staff. ALFONZO advised patient that if she has any needs or issues to advise staff. Patient verbalized understanding. Emotional support provided. Plan: Emotional Support provided Aydee HLOGUIN Original Note: ALFONZO Note: ALFONZO referral Source: [facility] ALFONZO, Laya MEJÍA referral Reason: Patient's has a recent diagnosis of ALS. Patient has alot of anxiety related to FOB being able to be at delivery. History of bipolar disorder, history of opiate use and on Subutex with [facility]. ALFONZO spoke to Shantell Correia RN. She indicated that patient is being discharge home as she was an outpatient. She report no issues or concerns except that patient's had a recent ALS diagnosis. Aydee HOLGUIN
[2021-06-13 12:32] LABS: Group B Strep DNA By PCR Negative (Negative); Internal Control PASS; Probe Check PASS; Specimen Processing Control PASS
--- NOTE | 2021-06-14 00:24 | OB.TRI.HP_ITS ---
HPI - General HPI Narrative XIOMY CHAN, is a 30 F at 36w1d who presents with decreased movement and abdominal cramping. Was visiting in hospital and attempted to help lift him and had pelvic cramp. movement decreased today. Denies any vaginal bleeding, leakage of fluid. Not hydrating well. No headache or sco yesenia or RUQ abdominal pain. Irregular contractions. Maternal Data Information SHA Calculator Estimated Delivery Date Method Current WG Current Estimate 07/10/21 Manual 36w 2d PFSH PFSH Home Medications PNV 931-vlvig-fyigz-3-fish oil [ Gummies] 2 ea PO DAILY 02/02/19 [History Last Taken 06/04/21 09:00] enoxaparin 40 mg SQ BID 02/02/19 [History Last Taken 06/12/21] buprenorphine HCl 8 mg SUBLINGUAL DAILY 03/04/19 [History Last Taken 06/12/21] gabapentin 300 mg PO TIDCM 03/04/19 [History Last Taken 06/12/21] aspirin 81 mg PO DAILY 06/05/21 [History Last Taken 06/12/21] buprenorphine HCl 4 mg SUBLINGUAL 06/05/21 [History Last Taken 06/12/21] Allergy/AdvReac Type Severity Reaction Status Date / Time No Known Allergies Allergy Verified 06/05/21 00:49 Social History Smoking Status: Current every day smoker History Elective abortions Hx Para 0 Spontaneous abortions Hx # Term Pregnancies Ectopic pregnancies Hx # Pregnancies Multiple births # of living children ROS Constitutional Constitutional: Reports systems reviewed and no addt'l complaints, except as documented; Denies headache(s) Eyes Eyes: Denies acute decrease in peripheral vision, blurry vision or change in vision ENT HEENT: Reports systems reviewed and no addt'l complaints, except as documented Cardiovascular Cardiovascular: Denies chest pain or dizziness Respiratory/Chest Respiratory/Chest: Denies cough, dyspnea, dyspnea on exertion, shortness of breath at rest or shortness of breath with exertion Gastrointestinal Gastrointestinal: Denies abdominal pain, diarrhea, nausea or vomiting Genitourinary Genitourinary: Denies abdominal discomfort or movement Musculoskeletal Musculoskeletal: Denies limited range of motion Integumentary Integumentary: Reports systems reviewed and no addt'l complaints, except as documented Neurologic Neurologic: Reports systems reviewed and no addt'l complaints, except as documented Psychiatric Psychiatric: Reports systems reviewed and no addt'l complaints, except as documented Endocrine Endocrinology: Reports systems reviewed and no addt'l complaints, except as documented Hematologic/Lymphatic Hematologic/Lymphatic: Reports systems reviewed and no addt'l complaints, except as documented Allergic/Immunologic Allergic/Immunologic: Reports systems reviewed and no addt'l complaints, except as documented Physical Exam Narrative cervical exam changed from 1 to 2 cm Const alert, oriented x3 and no apparent distress HEENT HEENT Narrative: Oral mucous dry, lips cracked Head and Scalp: normocephalic Mouth: dry mucous membranes Neck full ROM Resp normal respiratory effort and clear to auscultation bilaterally Cardio regular rate, regular rhythm, S1 normal heart sound, S2 normal heart sound and no murmurs GI normal to inspection, nondistended, normoactive bowel sounds Inspection: gravid Manual OB Exam: dilated 1.5 per nursing Extremity no pedal edema Neuro deep tendon reflexes 2+ bilaterally Motor Exam: clonus absent Psych mental status grossly normal and affect normal NST FHR Rate Baby A Baseline: 135 Variability:: Moderate Accelerations:: 15 x 15 Decelerations:: None NST Reactive:: Yes Uterine Activity:: Irregular Assessment & Plan (1) Dehydration during : (2) 36 weeks gestation of : (3) False labor: (4) Decreased movement: PLAN: 1) CMP, CBC and urine culture 2) 2 liters of LR 3) Reviewed round ligament pain and good body mechanics if moving but to ask for assistance. in hospital with ALS. 4) Reviewed PO hydration at home and proper daily intake 5) Celestone 12mg IM and repeat in 24 hr due to contractions with cervical change. No further cervical change after IV fluids. PTL precautions reviewed and when to call 6) notified of patient status 7) D/C home
== END 2021-06-13 09:49 | disposition home or self-care (01) ==
LOC: WPOUT 02:31 → WP 02:31
PROVIDERS: Visit Provider Advanced Practice Midwife
DX: O36.8130 Decreased fetal movements, third trimester, not applicable or unspecified (principal); O62.9 Abnormality of forces of labor, unspecified; O47.03 False labor before 37 completed weeks of gestation, third trimester; O26.893 Other specified pregnancy related conditions, third trimester; E86.0 Dehydration; O99.333 Smoking (tobacco) complicating pregnancy, third trimester; F17.200 Nicotine dependence, unspecified, uncomplicated; Z3A.36 36 weeks gestation of pregnancy; Z79.82 Long term (current) use of aspirin
CPT/HCPCS: 96360; 96361; 96372; 36415; 59025; 59050; 80053; 81001; 84112; 85025; 87081; 87086; 87088; 87653; 99218; J7120; A4216; G0378; J0702

== ENCOUNTER 2021-06-14 07:15 | Outpatient (CLI) | payer OTHER, MEDICAID, SELFPAY ==
[2021-06-13 02:41] VITALS: BMI 35.9
[2021-06-14 07:31] VITALS: BMI 36.3
[2021-06-14 07:52] VITALS: BP 130/64; PULSE 80
[2021-06-14] MEDS: Betamethasone/Betamethasone 30 MG/5 ML Vial 12 MG IM (07:52)
--- NOTE | 2021-07-03 12:45 | OB.TRI.HP_ITS ---
HPI - General HPI Narrative XIOMY CHAN, is a 30 F who presents for second Celestone injection Maternal Data Information SHA Calculator Estimated Delivery Date Method Current WG Current Estimate 07/10/21 Manual 39w 0d PFSH PFSH Home Medications PNV [id number]-3-fish oil [ Gummies] 2 ea PO DAILY 02/02/19 [ History Last Taken 07/02/21 08:00 2 gummies] enoxaparin 40 mg SQ BID 02/02/19 [History Last Taken 07/02/21 07:00 40 mg subcutaneous] buprenorphine HCl 8 mg SUBLINGUAL BREAKFAST 03/04/19 [History Last Taken 07/03/21 09:00 8 mg] gabapentin 300 mg PO TIDCM 03/04/19 [History Last Taken 07/03/21 05:30 300 mg] aspirin 81 mg PO BREAKFAST 06/05/21 [History Last Taken 07/02/21 08:00 81 mg] buprenorphine HCl 4 mg SUBLINGUAL QHS 06/05/21 [History Last Taken 07/02/21 17:30 4 mg] Allergy/AdvReac Type Severity Reaction Status Date / Time No Known Allergies Allergy Verified 06/05/21 00:49 Social History Smoking Status: Heavy Smoker (>10/day) History Elective abortions Hx Para 1 Spontaneous abortions Hx # Term Pregnancies Ectopic pregnancies Hx # Pregnancies Multiple births # of living children Assessment & Plan (1) 36 weeks gestation of : (2) Uterine contractions during : PLAN: 1) Presents for second dose of Celestone due to uterine contractions and risk of delivery.
== END 2021-06-14 07:55 | disposition home or self-care (01) ==
LOC: WPOUT 07:29 → WP 07:29
PROVIDERS: Visit Provider Advanced Practice Midwife
DX: O47.03 False labor before 37 completed weeks of gestation, third trimester (principal); O99.333 Smoking (tobacco) complicating pregnancy, third trimester; F17.200 Nicotine dependence, unspecified, uncomplicated; Z3A.36 36 weeks gestation of pregnancy; Z79.82 Long term (current) use of aspirin
CPT/HCPCS: 96372; J0702

== ENCOUNTER 2021-06-21 00:45 | Outpatient (CLI) | payer OTHER, MEDICAID, SELFPAY ==
[2021-06-14 07:52] VITALS: BP 130/64; PULSE 80; TEMP 36.6; O2SAT 98
[2021-06-21 00:56] VITALS: BP 133/91; PULSE 84; TEMP 37; O2SAT 99
[2021-06-21 01:09] VITALS: BMI 35.6
[2021-06-21 01:49] LABS: ROM Internal Control Test YES-OK TO RESULT pt. (Internal QC); ROM Patient Test Negative (Negative)
[2021-06-21 02:07] VITALS: BP 151/90; PULSE 78
[2021-06-21 02:10] VITALS: BP 133/83; PULSE 61
--- NOTE | 2021-06-21 10:42 | OB.TRI.NOTE ---
HPI - General HPI Narrative XIOMY CHAN, is a 30 F who presents at 37w2d for ctx's and possible LOF. Maternal Data Information SHA Calculator Estimated Delivery Date Method Current WG Current Estimate 07/10/21 Manual 37w 2d PFSH PFSH Home Medications PNV 326-yaokh-thjzt-3-fish oil [ Gummies] 2 ea PO DAILY 02/02/19 [History Last Taken 06/20/21] enoxaparin 40 mg SQ BID 02/02/19 [History Last Taken 06/20/21 09:00] buprenorphine HCl 8 mg SUBLINGUAL BREAKFAST 03/04/19 [History Last Taken 06/12/21] gabapentin 300 mg PO TIDCM 03/04/19 [History Last Taken 06/20/21 21:00] aspirin 81 mg PO BREAKFAST 06/05/21 [History Last Taken 06/21/21] buprenorphine HCl 4 mg SUBLINGUAL QHS 06/05/21 [History Last Taken 06/20/21 17:30] Allergy/AdvReac Type Severity Reaction Status Date / Time No Known Allergies Allergy Verified 06/05/21 00:49 Social History Smoking Status: Current every day smoker History Elective abortions Hx Para 0 Spontaneous abortions Hx # Term Pregnancies Ectopic pregnancies Hx # Pregnancies Multiple births # of living children NST FHR Rate Baby A Baseline: 120 Variability:: Moderate Accelerations:: 15 x 15 Decelerations:: None NST Reactive:: Yes FHR Category:: Category I Uterine Activity:: Irregular, infrequent ctx's Assessment & Plan (1) 37 weeks gestation of : PLAN: - ROM plus negative - Cvx 2 cm - Irregular and infrequent ctx's - Pt not currently in labor - D/c home with follow up this week in office (2) Uterine contractions during :
== END 2021-06-21 02:15 | disposition home or self-care (01) ==
LOC: WPOUT 00:49 → WP 00:49
PROVIDERS: Referring Provider Obstetrics & Gynecology; Visit Provider Obstetrics & Gynecology
DX: O47.1 False labor at or after 37 completed weeks of gestation (principal); O99.333 Smoking (tobacco) complicating pregnancy, third trimester; F17.200 Nicotine dependence, unspecified, uncomplicated; Z3A.37 37 weeks gestation of pregnancy; Z79.82 Long term (current) use of aspirin
CPT/HCPCS: 59025; 59050; 84112; 99218; G0378

== ENCOUNTER 2021-07-03 07:10 | Inpatient (IN) | payer OTHER, MEDICAID, SELFPAY ==
[2021-07-03] VITALS (54 sets, daily range): BP systolic 89–142; BP diastolic 52–82; PULSE 46–92; RESP 18; TEMP 36–37; O2SAT 92–100; BMI 35.9
[2021-07-03] MEDS: Lactated Ringers 1,000 ML 50 ML IV (08:05)
[2021-07-03] MEDS: Oxytocin 30 units/NS 500 ml 30 UNITS/500 ML IV.SOLN IV (08:07)
[2021-07-03 08:35] LABS: Absolute Lymphocyte Count 2.66 X10^3/uL (0.83-4.51); Absolute Neutrophil Count 7.1 X10^3/uL (2.0-7.7); Basophil# 0.04 X10^3/uL; Basophil% 0.4 % (0-1); Eosinophil# 0.09 X10^3/uL; Eosinophils% 0.9 % (0-5); Hematocrit 31.5 % (37-47); Hemoglobin 10.5 g/dL (12.0-15.0); Lymphocyte # 2.66 X10^3/ul (0.83-4.51); Lymphocyte % 25.3 % (19-41); Mean Corp Hgb Conc 33.3 g/dL (32-36); Mean Corpuscular Hgb 28.5 pg (27.0-32.0); Mean Corpuscular Volume 85.4 fL (81-99); Mean Platelet Vol. 11.2 fl (6.2-12.0); Monocyte% 5.7 % (0-10); NRBC Flagged by Analyzer 0 % (0-5); Neutrophil % 67.3 % (47-70); Platelet Count 248 K/mm3 (150-450); RBC Distribution Width CV 13.2 % (11.6-14.6); RBC Distribution Width SD 40.8 fl (35.1-43.9); Red Blood Count 3.69 M/mm3 (4.2-5.4); White Blood Count 10.5 K/mm3 (4.4-11.0)
[2021-07-03 08:54] LABS: Amphetamine Urine VISTA NEGATIVE (<1000 ng/mL); Barbiturate Urine VISTA NEGATIVE (< 200 ng/mL); Benzodiazepine Urine VISTA NEGATIVE (< 200 ng/mL); Cocaine Urine VISTA NEGATIVE (< 300 ng/mL); Ecstacy Urine VISTA NEGATIVE (< 500 ng/mL); Methadone Urine VISTA NEGATIVE (< 300 ng/mL); PCP Urine VISTA NEGATIVE (< 25 ng/mL); THC Urine VISTA NEGATIVE (< 50 ng/mL); Vista UDS pH Range 6
[2021-07-03] MEDS: Lactated Ringers 500 ML 999 ML IV (11:38)
--- NOTE | 2021-07-03 12:27 | HP.PCM.OB_ITS ---
HPI - General General Date of Admission: 07/03/21 HPI Narrative XIOMY CHAN, is a 30 F at 39 weeks who presents for elective IOL. diagnosed with ALS and declining and currently in Hospice care. History of opiate abuse, stable on Subutex for 2 years, obesity, DVT in pior , FVL heterozygote. Last dose of Lovenox at 0700 yesterday morning. History of Bipolar disorder, tobacco use in . Maternal Data Information SHA Calculator Estimated Delivery Date Method Current WG Current Estimate 07/10/21 Manual 39w 0d PFSH PFSH Home Medications PNV [id number]-[id number]-fish oil [ Gummies] 2 ea PO DAILY 02/02/19 [History Last Taken 07/02/21 08:00 2 gummies] enoxaparin 40 mg SQ BID 02/02/19 [History Last Taken 07/02/21 07:00 40 mg subcutaneous] buprenorphine HCl 8 mg SUBLINGUAL BREAKFAST 03/04/19 [History Last Taken 07/03/21 09:00 8 mg] gabapentin 300 mg PO TIDCM 03/04/19 [History Last Taken 07/03/21 05:30 300 mg] aspirin 81 mg PO BREAKFAST 06/05/21 [History Last Taken 07/02/21 08:00 81 mg] buprenorphine HCl 4 mg SUBLINGUAL QHS 06/05/21 [History Last Taken 07/02/21 17:30 4 mg] Allergy/AdvReac Type Severity Reaction Status Date / Time No Known Allergies Allergy Verified 06/05/21 00:49 Social History Smoking Status: Heavy Smoker (>10/day) History Elective abortions Hx Para 1 Spontaneous abortions Hx # Term Pregnancies Ectopic pregnancies Hx # Pregnancies Multiple births # of living children NST FHR Rate Baby A Baseline: 115 Variability:: Moderate Accelerations:: 15 x 15 Decelerations:: None FHR Category:: Category I Uterine Activity:: Every 2-4 minutes, mild to strong ROS Constitutional Constitutional: Reports systems reviewed and no addt'l complaints, except as documented; Denies headache(s) Eyes Eyes: Denies acute decrease in peripheral vision, blurry vision or change in vision ENT HEENT: Reports systems reviewed and no addt'l complaints, except as documented Cardiovascular Cardiovascular: Denies chest pain or dizziness Respiratory/Chest Respiratory/Chest: Denies cough, dyspnea, dyspnea on exertion, shortness of breath at rest or shortness of breath with exertion Gastrointestinal Gastrointestinal: Denies abdominal pain, diarrhea, nausea or vomiting Genitourinary Genitourinary: Denies abdominal discomfort or movement Musculoskeletal Musculoskeletal: Denies limited range of motion Integumentary Integumentary: Reports systems reviewed and no addt'l complaints, except as doc umented Neurologic Neurologic: Reports systems reviewed and no addt'l complaints, except as documented Psychiatric Psychiatric: Reports systems reviewed and no addt'l complaints, except as documented Endocrine Endocrinology: Reports systems reviewed and no addt'l complaints, except as documented Hematologic/Lymphatic Hematologic/Lymphatic: Reports systems reviewed and no addt'l complaints, except as documented Allergic/Immunologic Allergic/Immunologic: Reports systems reviewed and no addt'l complaints, except as documented Vital Signs Vital Signs Vital Signs: 07/03/21 07:24 07/03/21 08:37 07/03/21 08:46 Temperature 98.6 F 97.7 F L 97.7 F L Temperature Source Temporal Temporal Pulse Rate 92 58 L 69 Blood Pressure 121/80 H 119/76 119/76 BP Systolic 121 119 119 BP Diastolic 80 76 76 Pulse Ox 100 100 07/03/21 10:10 07/03/21 10:11 07/03/21 10:12 Temperature 97.5 F L Temperature Source Temporal Pulse Rate 70 50 L Blood Pressure 113/73 BP Systolic 113 BP Diastolic 73 Pulse Ox 100 07/03/21 11:33 07/03/21 11:34 Temperature 97.7 F L Temperature Source Temporal Pulse Rate 53 L Blood Pressure 127/81 H BP Systolic 127 BP Diastolic 81 Pulse Ox 100 Weight Weight: 209 lb 0.007 oz Body Mass Index (BMI) 35.9 Physical Exam Const alert and oriented x3 General Appearance: cooperative Orientation / Consciousness: awake, oriented to person, oriented to place and oriented to time Exam Limitations: no limitations HEENT normocephalic Head and Scalp: normal to inspection, normocephalic and atraumatic Face and Sinus: normal facial exam Eyes General Eye: normal appearance of both eyes Neck full ROM Chest Chest: symmetrical chest wall rise Resp normal respiratory effort and normal air movement Auscultation: clear to auscultation bilaterally Cardio regular rate, regular rhythm, S1 normal heart sound, S2 normal heart sound, no murmurs, no rub, no gallops and no clicks GI normal to inspection, nondistended, normoactive bowel sounds and non-tender appearance of the vagina normal Narrative: AROM for large amount of clear fluid Bladder / Kidney Exam: no CVA tenderness Manual OB Exam: presentation cephalic, dilated 4.5, effaced 60 and station -1 Back/Spine normal ROM Extremity normal to inspection and full ROM Skin no rashes or lesions noted Neuro oriented x3, CN's II-XII intact bilaterally and moves all extremities Sensorium / Orientation: awake, alert and oriented to person Motor Exam: clonus absent Deep Tendon Reflexes: Rt Patellar (L4): 2+ and Lt Patellar (L4): 2+ Labs Labs Labs: Blood Type A POSITIVE Antibody Screen NEGATIVE Hct 31.5 % (37-47) L Hgb 10.5 g/dL (12.0-15.0) L Group B Strep DNA Negative (Negative) Rhogam given: No HIV negative HepC negative HBsAG negative Rubella negative GC/CT negative 1hr GCT 130, nml A positive COVID Negative Assessment & Plan (1) Encounter for induction of labor: (2) Bipolar disorder: (3) History of DVT (deep vein thrombosis): (4) Factor 5 Leiden mutation, heterozygous: (5) Tobacco use during : (6) complicated by subutex maintenance, antepartum: (7) History of drug abuse in remission: (8) Obesity affecting : PLAN: 1) Admit to labor and delivery for induction of labor 2) Routine labs, urine drug screen 3) Pitocin per protocol 4) epidural for pain management 5) Last dose of Lovenox 0700 on 07/02/21, 24 hr prior to IOL 6) Continuous EFM 7) Subutex brought and to be verified by pharmacy 8) Dr.James meade physician and notified of patient status 9) AROM
[2021-07-03] MEDS: Oxytocin 30 units/NS 500 ml 30 UNITS/500 ML IV.SOLN 334 UNITS IV (15:30)
--- NOTE | 2021-07-03 15:59 | EX.PCM.OBRPT ---
Maternal Data Information SHA Calculator Estimated Delivery Date Method Current Current Estimate 07/10/21 Manual 39w 0d Vaginal Delivery Maternal Presentation Maternal Presentation: Elective Induction Type of Induction: Pitocin and Amniotomy Operative Information Date of Procedure: 07/03/21 Pre-Operative Diagnosis: (1) Maternal subutex use (2) H/o DVT Post-Operative Diagnosis: Same Surgery / Procedure Performed: Vacuum Assisted Vaginal Delivery Type of Anesthesia: Epidural Estimated Blood Loss: 300ml Findings Description of Procedure: Patient taken to the OR for bradycardia. Upon arrival to the OR FHR was 110's but quickly returned to 70's-80's. Cervix checked and patient was C/C/+1. Patient placed in dorsal lithotomy position on the OR bed. She pushed well but bradycardia still persisted intermittently. Bladder drained with garg catheter. Decision made to use vacuum. head position confirmed and then vaccum placed and location on head confirmed. With next contraction and 1 pull of the vaccum the head delivered. Vacuum released. head gently guided to allow delivery of anterior and posterior shoulders. No excess traction placed on head. Body delivered and 3VC clamped & cut in delayed fashion. Placenta delivered with gentle traction and good uterine tone obtained. Presentation: LULU Amniotic Membrane Rupture Type: Artificial Amniotic Fluid Description: Clear Placental Delivery Description: Expressed Placenta Disposition: [facility] Specimen(s) Removed: Placenta Cord Vessel Description: 3 Vessels Cord Entanglement: None Cord Gases: ABG and VBG Infant A Gender: Male (1 minute): 8 (5 minute): 9 Delayed Cord Clamping: Yes Post Vaginal Delivery Medications Given After Delivery: IV Pitocin Episiotomy Description: None Laceration: 1st degree (vaginal - midline & bilateral - repaired with 3-0 vicryl) Complication Complications: None
[2021-07-03] MEDS: 0.9% Saline Lock 10 ML Syringe IV (18:20)
[2021-07-03] MEDS: Ibuprofen 600 MG Tablet PO (20:36)
[2021-07-04] VITALS (10 sets, daily range): BP systolic 117–141; BP diastolic 68–87; PULSE 46–76; RESP 16–18; TEMP 36.5–36.8; O2SAT 99
[2021-07-04] MEDS: Acetaminophen 500 MG Tablet 1000 MG PO ×2 (01:06→21:29)
[2021-07-04] MEDS: Enoxaparin 40 MG/0.4 ML Syringe SC ×2 (03:50→22:35)
[2021-07-04] MEDS: Ibuprofen 600 MG Tablet PO ×2 (08:26→18:35)
[2021-07-04] MEDS: BUPRENORPHINE HCL 8 MG TAB.SUBL SL (10:22)
--- NOTE | 2021-07-04 11:01 | PCM.PN.OB ---
Subjective Subjective No complaints Objective Data Objective Data Vital Signs: Vital Signs Temp Pulse Resp BP Pulse Ox 97.8 F 72 16 138/72 H 100 07/04/21 08:28 07/04/21 08:28 07/04/21 08:28 07/04/21 08:28 07/03/21 18:25 Oxygen Delivery Method Room Air Weight: 209 lb 0.007 oz Body Mass Index (BMI) 35.9 Intake & Output: Intake and Output for Last 24 Hours 07/02/21 07/03/21 07/04/21 23:59 23:59 23:59 Intake Total 2227.24 / 2227.24 Output Total 600 / 600 800 / 800 Balance 1627.24 / 1627.24 -800 / -800 Lab / Micro Data Result Diagrams: 07/03/21 08:05 Physical Exam Const alert, oriented x3 and no apparent distress HEENT normocephalic GI soft to palpation, non-tender and non-distended GI Narrative: fundus firm, mid & below umbilicus Extremity normal to inspection and no calf tenderness Assessment & Plan (1) Vaginal delivery: COMMENT: PPD#1 PLAN: Continue subutex H/o DVT - continue lovenox Routine care
--- NOTE | 2021-07-04 20:50 | PCM.DC ---
Discharge Instructions Diet Discharge Diet: No restrictions Activity Discharge Activity: May Shower May resume sexual activity in: 6 weeks Weight Bearing Status: Weight bearing as tolerated Dressing / Incision Call your doctor if you observe: Fever of 101 or Higher, Coldness, Increased Pain, Change in Color, Inability to urinate, Inability to have a bowel movement, Using more than 1 pad per hour, Shortness of breath, Dizziness, Fainting spells, Chest pain, Increased palpitations (irregular heartbeat), Calf discomfort and Uncontrolled pain Follow Up Care Please Follow Up With: Aleah Patrick CNM When: Follow up in 2 and 6 weeks for visits. Test Results: Test results from this visit will be discussed in further detail at your follow-up appointment, if applicable. Discharge Plan Admission Admit Date/Time: 07/03/21 07:10 Primary Reason for Your Visit: Vaginal delivery Attending Provider: Jose M Fernandez Primary Care Provider: Katey Physician,Kathy Primary Discharge Orders/Prescriptions Prescriptions: New acetaminophen 500 mg Tablet 1,000 mg PO Q6H PRN PRN (Reason: Pain 1-10 Or Fever) Qty: 0 RF: 0 ibuprofen 600 mg Tablet 600 mg PO Q6H PRN PRN (Reason: Pain Score 1-3) Qty: 0 RF: 0 Continued enoxaparin 100 MG/ML syringe 40 mg SQ BID RF: 0 with DHA-Folic Acid 1 EACH tablet,chewable 2 ea PO DAILY RF: 0 gabapentin 300 MG capsule 300 mg PO TIDCM RF: 0 buprenorphine HCl 8 MG tablet, sublingual 8 mg sublingual BREAKFAST RF: 0 aspirin 81 mg Tablet 81 mg PO BREAKFAST RF: 0 buprenorphine HCl 8 mg Tablet, Sublingual 4 mg SUBLINGUAL QHS RF: 0 Referrals / Follow Up: Care Physician,No Primary [Primary Care Provider] - Disposition Disposition (needs filled in before D/C Order can be placed): Home, Self Care
[2021-07-04] MEDS: BUPRENORPHINE HCL 8 MG TAB.SUBL 4 MG SL (21:26)
[2021-07-05] VITALS (7 sets, daily range): BP systolic 120–139; BP diastolic 67–80; PULSE 50–76; RESP 16; TEMP 36.9–37.2
[2021-07-05] MEDS: Ibuprofen 600 MG Tablet PO (02:24)
[2021-07-05 06:11] LABS: Absolute Lymphocyte Count 2.88 X10^3/uL (0.83-4.51); Absolute Neutrophil Count 3.8 X10^3/uL (2.0-7.7); Basophil# 0.03 X10^3/uL; Basophil% 0.4 % (0-1); Eosinophil# 0.22 X10^3/uL; Hematocrit 30.7 % (37-47); Lymphocyte # 2.88 X10^3/ul (0.83-4.51); Lymphocyte % 39.5 % (19-41); Mean Corp Hgb Conc 32.6 g/dL (32-36); Mean Corpuscular Hgb 28.1 pg (27.0-32.0); Mean Corpuscular Volume 86.2 fL (81-99); Mean Platelet Vol. 9.8 fl (6.2-12.0); Monocyte# 0.36 X10^3/uL; Monocyte% 4.9 % (0-10); NRBC Flagged by Analyzer 0 % (0-5); Neutrophil # 3.76 X10^3/uL (2.7-7.7); Neutrophil % 51.7 % (47-70); Platelet Count 252 K/mm3 (150-450); RBC Distribution Width CV 13.3 % (11.6-14.6); RBC Distribution Width SD 41.5 fl (35.1-43.9); Red Blood Count 3.56 M/mm3 (4.2-5.4); White Blood Count 7.3 K/mm3 (4.4-11.0)
[2021-07-05 06:35] LABS: ALB/GLOB Ratio 0.6 RATIO (0.9-2.4); AST(SGOT) 23 U/L (15-37); Alanine Aminotransfer ALT/SGPT 22 U/L (13-56); Albumin, Serum 2.2 g/dL (3.2-5.0); Alkaline Phosphatase 102 U/L (45-117); Anion Gap 6 (5-15); BUN 7 mg/dL (7-18); BUN/Creat Ratio 15.8 RATIO (10-20); Calcium,Total 8.2 mg/dL (8.5-10.1); Chloride 109 mmol/L (98-107); Creatinine, Serum 0.44 mg/dL (0.55-1.02); EST Glomerular Filtration Rate 174 mL/min (>60); Est Glom Filt Rate - Afr Amer 210 mL/min (>60); Estimated Creatinine Clearance 158.51 ml/min; Globulin 3.4 g/dL (2.2-4.2); Glucose 71 mg/dL (74-106); Potassium 3.9 mmol/L (3.5-5.1); Protein, Total 5.6 g/dL (6.4-8.2); Sodium Level 138 mmol/L (136-145); Uric Acid 3.2 mg/dL (2.6-6.0)
[2021-07-05] MEDS: Enoxaparin 40 MG/0.4 ML Syringe SC (09:36)
[2021-07-05] MEDS: BUPRENORPHINE HCL 8 MG TAB.SUBL SL (09:37)
--- NOTE | 2021-07-05 09:58 | PCM.PN.OB ---
Subjective Subjective Feels well Objective Data Objective Data Vital Signs: Vital Signs Temp Pulse Resp BP Pulse Ox 98.9 F 75 16 120/80 99 07/05/21 08:07/05/21 08:07/05/21 08:07/05/21 08:07/04/21 12:30 Oxygen Delivery Method Room Air Weight: 209 lb 0.007 oz Body Mass Index (BMI) 35.9 Intake & Output: Intake and Output for Last 24 Hours 07/03/21 07/04/21 07/05/21 23:59 23:59 23:59 Intake Total 2227.24 / 2227.24 Output Total 600 / 600 800 / 800 Balance 1627.24 / 1627.24 -800 / -800 Lab / Micro Data Result Diagrams: 07/05/21 06:00 07/05/21 06:00 Labs: Laboratory Results - last 24 hr 07/05/21 06:00: WBC 7.3, RBC 3.56 L, Hgb 10.0 L, Hct 30.7 L, MCV 86.2, MCH 28.1, MCHC 32.6, RDW Std Deviation 41.5, RDW Coeff of Marisol 13.3, Plt Count 252, MPV 9.8, Immature Gran % (Auto) 0.500, Neut % (Auto) 51.7, Lymph % (Auto) 39.5, [place] % (Auto) 4.9, Eos % (Auto) 3.0, Baso % (Auto) 0.4, Absolute Neuts (auto) 3.8, Absolute Lymphs (auto) 2.88, Nucleated RBC % 0 07/05/21 06:00: Sodium 138, Potassium 3.9, Chloride 109 H, Carbon Dioxide 23.0, Anion Gap 6, BUN 7, Creatinine 0.44 L, Estim Creat Clear Calc 158.51, Est GFR (MDRD) Af Amer 210, Est GFR (MDRD) Non-Af 174, BUN/Creatinine Ratio 15.8, Glucose 71 L, Uric Acid 3.2, Calcium 8.2 L, Total Bilirubin 0.20, AST 23, ALT 22, Alkaline Phosphatase 102, Total Protein 5.6 L, Albumin 2.2 L, Globulin 3.4, Albumin/Globulin Ratio 0.6 L Physical Exam Const alert, oriented x3 and no apparent distress HEENT normocephalic GI soft to palpation, non-tender and non-distended GI Narrative: fundus firm, mid & below umbilicus Extremity normal to inspection and no calf tenderness Assessment & Plan (1) Vaginal delivery: COMMENT: PPD#2 PLAN: PreE labs normal and BP's normal overnight. She had 1 minimally elevated BP last night. No signs/symptoms preeclampsia. Subutex maintenance H/o DVT - continue lovenox D/c to hotel later today. Patient has all needed medications.
--- NOTE | 2021-07-05 15:18 | NURSING ---
hotel status paperwork signed and given to pt
--- NOTE | 2021-07-05 15:21 | NURSING ---
pts subutex given back to her
--- NOTE | 2021-07-07 18:06 | CASEMGMT ---
Social Work Labor and Delivery Unit Social work consult was received for this patient/mother of baby. Baby in hospital for 5-7 days for monitoring of withdrawal symptoms. Attempted to meet with MOB today for assessment, but MOB off the unit outside. Baby has been transferred to the [facility]. This dining room manager is the assigned social media marketing specialist to the SCN, so will be following the family while in the SCN as well. Full assessment to follow, once able to meet face to face with the MOB. -MIKE Philip, MEDICAL OFFICE REP
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
--- NOTE | 2021-07-09 16:30 | CASEMGMT ---
Social Work Labor and Delivery Unit This jingle writer spoke with Avis a nurse for Dr. Gipson at [facility]. Verified that NADJA is prescribed 12 mg of Subutex a day. And a milligram tablet in the morning and half of a tablet in the afternoon. And will be passed drug screen on 06/30/2021. Per Avis Gipson's note indicates the mother baby has been adherent to outpatient treatment. No identified concerns. This jingle writer spoke with the MOB, who expressed that if this jingle writer needs to speak with the psychiatry department this jingle writer could do so. Let MOB know that things seem to be okay right now and was able to verify with Dr. Gipson's nurse what is needed. MOB expressed appreciation. Let MOB know that this jingle writer plans to call [facility] today. Uncertain whether case would be opened. Called [facility] and spoke with Kali Foster in the intake department. Referral due to substance exposure of infant in utero. Brief maternal and infant histories provided. Let Kali know that this jingle writer verified MOB treatments at [facility], and that I will be appears to have been following treatment protocols. This jingle writer requested to be contacted should said agency decide to open follow-up for investigation, as wanted to let the MOB be aware. Updated that drug screens negative except for buprenorphine, which would be expected based off of MOV's prescribed medications. Plan: NADJA has been discharged as a patient. The baby was transferred into the [facility] nursery. This jingle writer is the assigned manager social responsibility to the special [facility] nursery, for continuity of care of families admitted from [facility]. This jingle writer will continue to follow and assist from the special care nursery side. -MIKE Philip, CUTTER AND PRESSER *This note was generated with Pencil You Ination software. It may contain incorrect words, spelling, and punctuation that were not noted in review of the chart prior to signing*
--- NOTE | 2021-07-15 11:58 | CASEMGMT ---
Social Work Labor and Delivery Unit Late entry for 07-10-2021: This pattern chart writer received call from María Elena, a supervisor intelligence analyst at [facility], who left message that referral this pattern chart writer made screened in for investigation. Spoke with mother of baby (MOB) at baby's bedside who reports to have spoken with [facility]. MOB asks this pattern chart writer to fax lab results to said agency, to help with progress of case. Release of information to [facility] signed. Entry for 07.15.2021: Called [facility]. Spoke to screening department and confirmed fax as [phone]. Faxed patient/mother of baby urine drug screen results as requested by the MOB. Release of information has been signed by MOB to bias machine operator helper in the child protective investigation. Release of information sent to venue manager Naa Styles. No other services requested or indicated for this baby. -MIKE Philip, STORE RECEIVING SPECIALIST
== END 2021-07-05 15:26 | disposition home or self-care (01) | DRG 560 ==
PROVIDERS: Advanced Practice Midwife; Admitting Provider Obstetrics & Gynecology; Visit Provider Obstetrics & Gynecology
DX: O76 Abnormality in fetal heart rate and rhythm complicating labor and delivery (principal); O99.12 Other diseases of the blood and blood-forming organs and certain disorders involving the immune mechanism complicating childbirth; D68.51 Activated protein C resistance; O70.0 First degree perineal laceration during delivery; O16.5 Unspecified maternal hypertension, complicating the puerperium; O99.324 Drug use complicating childbirth; F11.11 Opioid abuse, in remission; O99.344 Other mental disorders complicating childbirth; F31.9 Bipolar disorder, unspecified; O99.214 Obesity complicating childbirth; E66.9 Obesity, unspecified; O99.334 Smoking (tobacco) complicating childbirth; F17.200 Nicotine dependence, unspecified, uncomplicated; Z3A.39 39 weeks gestation of pregnancy; Z37.0 Single live birth; Z79.01 Long term (current) use of anticoagulants; Z79.82 Long term (current) use of aspirin; Z87.59 Personal history of other complications of pregnancy, childbirth and the puerperium; Z86.718 Personal history of other venous thrombosis and embolism
CPT/HCPCS: 59020; 59050; 80053; 80307; 84550; 85025; 86850; 86900; 86901; 99218; J7120; A4216; G0378; J3490